=== PATIENT | male | born 1975 | race Caucasian/White ===

== ENCOUNTER → 2025-02-03 10:27 | Outpatient (REF) | payer BC, SELFPAY ==
[2025-02-03 16:05] LABS: % Basophils 1.6 % (0-2); % Eosinophils 7.8 % (0-6); % Immature Granulocytes 0.1 % (0-0.5); % Lymphocytes 35.8 % (20.5-51.1); % Monocytes 6.7 % (1.7-9.3); Absolute Basophils 0.1 10^3/uL (0-0.2); Absolute Eosinophils 0.5 10^3/uL (0-0.7); Absolute Lymphocytes 2.5 10^3/uL (1.2-3.4); Absolute Monocytes 0.5 10^3/uL (0.1-0.6); Absolute Neutrophils 3.3 10^3/uL (1.4-6.5); Hematocrit 42.8 % (39.0-52.0); Hemoglobin 15.3 g/dL (13.0-18.0); Mean Corp Hgb Conc. 35.7 g/dL (33.0-37.0); Mean Corpuscular Volume 86.6 fL (80.0-94.0); Nucleated Red Blood Cells % 0 % (-); Platelet Count 274 10^3/uL (130-400); Red Blood Cell Count 4.94 10^6/uL (4.70-6.10); Red Cell Dist. Width 12.9 % (11.5-14.5); White Blood Cell Count 6.9 10^3/uL (4.8-10.8)
[2025-02-03 16:47] LABS: Blood Urea Nitrogen 18 mg/dl (9-20); Calcium 9.2 mg/dl (8.4-10.2); Carbon Dioxide 26 mmol/L (22-30); Chloride 106 mmol/L (98-107); Glucose 113 mg/dl (70-99); Potassium 4.3 mmol/L (3.5-5.1); Sodium 142 mmol/L (135-145); eGFR > 60.00
== END ==
LOC: HWLAB 10:27
PROVIDERS: ATTENDING PHYSICIAN Orthopaedic Surgery; FAMILY PHYSICIAN Internal Medicine
DX: Z01.818 Encounter for other preprocedural examination (principal)
CPT/HCPCS: 36415; 80048; 85025; 93005

== ENCOUNTER 2025-02-07 06:01 | Day surgery (SDC) | payer BC, SELFPAY ==
[2025-02-07] VITALS (12 sets, daily range): BP systolic 114–148; BP diastolic 75–91; BMI 38.0
[2025-02-07] MEDS: NORMOSOL-R/PLASMALYTE-A 1000 IV (07:02)
[2025-02-07] MEDS: TYLENOL 1000 MG PO (07:02)
[2025-02-07] MEDS: CELEBREX 200 MG PO (07:02)
[2025-02-07] MEDS: ZOFRAN 4 MG IV (10:21)
[2025-02-07] MEDS: DILAUDID 0.25 MG IV (10:29)
[2025-02-07] MEDS: ROXICODONE 5 MG PO (11:23)
== END 2025-02-07 12:25 | disposition home or self-care (01) ==
LOC: SDS 06:01
PROVIDERS: ATTENDING PHYSICIAN Orthopaedic Surgery
DX: S46.211A Strain of muscle, fascia and tendon of other parts of biceps, right arm, initial encounter (principal); X58.XXXA Exposure to other specified factors, initial encounter
CPT/HCPCS: 24342; C1713